=== PATIENT | male | born 1990 | race Two or more races ===

== ENCOUNTER 2023-09-13 10:06 | Inpatient (IN) | payer MEDICAID ==
[~2023-09-13] VITALS: Ht 180.3 cm; Wt 78.0 kg
[2023-09-13] MEDS ORDERED: DiphenhydrAMINE HCL 50 MG/ML VIAL ONE (10:49)
[2023-09-13] MEDS ORDERED: HALOPERIDOL LACTATE 5 MG/ML VIAL ONE (10:49)
[2023-09-13] MEDS ORDERED: LORazepam 2 MG/ML VIAL ONE (10:49)
[2023-09-13] MEDS ORDERED: LORazepam 2 MG/ML VIAL IM ONE (11:00)
[2023-09-13] MEDS ORDERED: PERTUSS(ACELL),DIPH,TET VAC/PF 0.5 ML SYRINGE IM. ONE (11:00)
[2023-09-13] MEDS ORDERED: HALOPERIDOL LACTATE 5 MG/ML VIAL IM ONE (11:00)
[2023-09-13] MEDS ORDERED: DiphenhydrAMINE HCL 50 MG/ML VIAL IM ONE (11:00)
[2023-09-13 12:58] LABS: BASOPHILS % (AUTO) 0.3 % (0.0-2.0); EOSINOPHILS % (AUTO) 0.5 % (1.0-6.0); HEMATOCRIT 34.4 % (41-53); HEMOGLOBIN 11.8 g/dL (13.5-17.5); LYMPHOCYTES # (AUTO) 1.2 K/uL (1.0-4.8); LYMPHOCYTES % (AUTO) 14.9 % (22.0-44.0); MEAN CORPUSCULAR HGB CONC 34.2 G/dL (31.0-37.0); MEAN CORPUSCULAR VOLUME 94 fL (80-100); MONOCYTES # (AUTO) 0.6 K/uL (0.1-1.0); MONOCYTES % (AUTO) 7.7 % (2.0-9.0); NEUTROPHILS # (AUTO) 5.9 K/uL (1.8-7.7); NEUTROPHILS % (AUTO) 76.6 % (40.0-70.0); PLATELET COUNT (AUTO) 199 K/uL (150-450); RED BLOOD CELL COUNT(AUTO) 3.68 MIL/uL (4.50-5.90); RED CELL DISTRIBUTION WIDTH 13.7 % (11.5-14.5); WHITE BLOOD COUNT (AUTO) 7.7 K/uL (4.5-11.0)
[2023-09-13 13:11] LABS: ALCOHOL, BLOOD (SERUM) < 3 mg/dL (0-10)
[2023-09-13 13:12] LABS: ANION GAP 2 mmol/L (8-16); CALCIUM, TOTAL 8.8 mg/dL (8.8-10.5); CARBON DIOXIDE 28 mmol/L (22-29); CHLORIDE 108 mmol/L (98-107); CREATININE 1.02 mg/dL (0.60-1.30); GLOMERULAR FILTR. RATE CALC > 60 mL/min (>60); GLUCOSE,RANDOM 80 mg/dL (70-110); POTASSIUM 3.9 mmol/L (3.5-5.1); SODIUM SERUM 138 mmol/L (136-145); UREA NITROGEN, BLOOD 14 mg/dL (7-18)
[2023-09-13 13:18] LABS: ALANINE AMINOTRANSFERASE 25 U/L (12-78); ALBUMIN 3.2 g/dL (3.4-5.0); ALKALINE PHOSPHATASE 85 U/L (46-116); ASPARTATE AMINOTRANSFERASE 30 U/L (15-37); BILIRUBIN,TOTAL 0.3 mg/dL (0.1-1.0); TOTAL PROTEIN, SERUM 6.5 g/dL (6.4-8.2)
[2023-09-13 13:29] LABS: COVID AG,FIA SOURCE NASAL SWAB
[2023-09-13 13:45] LABS: SARS-COV2 (COVID) ANTIGEN,FIA Negative (Negative)
[2023-09-13] MEDS ORDERED: ZOLPIDEM TARTRATE 10 MG TABLET PO PRN (17:00)
[2023-09-13 18:42] VITALS: RESP 18; TEMP 97.9
[2023-09-13] MEDS ORDERED: INFLUENZA VIRUS VACCINE QVS 2023-24 (6MO+)/PF 60 MCG/0.5 ML SYRINGE IM. ONE (18:45)
[2023-09-13 23:49] VITALS: RESP 18; TEMP 98
[2023-09-14] MEDS ORDERED: IBUPROFEN 400 MG TABLET PO PRN (14:00)
[2023-09-14] MEDS ORDERED: ONDANSETRON HCL 4 MG TABLET PO PRN (14:00)
[2023-09-14] MEDS ORDERED: MAGNESIUM HYDROXIDE SUSPENSION 30 ML UDCUP PO PRN (14:00)
[2023-09-14] MEDS ORDERED: NICOTINE 14 MG/24 HOUR PATCH TD PRN (14:00)
[2023-09-14] MEDS ORDERED: DOCUSATE SODIUM 100 MG CAPSULE PO PRN (14:00)
[2023-09-14] MEDS ORDERED: LOPERAMIDE HCL 2 MG CAPSULE PO PRN (14:00)
[2023-09-14] MEDS ORDERED: GuaiFENesin/D-METHORPHAN [SUGAR-FREE] 200-20MG/10 ML SYRUP UDCUP PO PRN (14:00)
[2023-09-14] MEDS ORDERED: CloNIDine HCL 0.1 MG TABLET PO PRN (14:00)
[2023-09-14] MEDS ORDERED: PETROLATUM,WHITE 28 GM JELLY TP PRN (14:00)
[2023-09-14] MEDS ORDERED: ALBUTEROL SULFATE HFA 90 MCG/PUFF 8 GM INHALER IH PRN (14:00)
[2023-09-14] MEDS ORDERED: ACETAMINOPHEN 325 MG TABLET PO PRN (14:00)
[2023-09-14] MEDS ORDERED: MAG HYDROX/ALUMINUM HYD/SIMETH ES 30 ML SUSPENSION UDCUP PO PRN (14:00)
[2023-09-14] MEDS: OLANZapine 5 MG RAPDIS TABLET PO SCH (17:00)
[2023-09-14 18:20] VITALS: RESP 17
[2023-09-14 21:30] VITALS: RESP 18
[2023-09-15 08:05] VITALS: RESP 17
[2023-09-15] MEDS: OLANZapine 5 MG RAPDIS TABLET PO SCH ×2 (08:09→16:14)
[2023-09-15 08:45] LABS: HEMOGLOBIN A1C 5.4 % (3.8-5.6)
[2023-09-15 09:05] LABS: CHOL/HDL RATIO 2.3 (4.2-7.3); CHOLESTEROL 165 mg/dL (131-200); HDL CHOLESTEROL 73 mg/dL (40-60); LDL CHOL (CALC.) 85 mg/dL (0-130); THYROID STIMULATING HORMONE 0.91 uIU/mL (0.36-3.74); TRIGLYCERIDES 37 mg/dL (15-150)
[2023-09-15 23:52] VITALS: BP 133/70; PULSE 69; RESP 18; TEMP 97.8
[2023-09-16] MEDS: OLANZapine 5 MG RAPDIS TABLET PO SCH ×2 (08:38→17:27)
[2023-09-16 09:11] VITALS: BP 127/71; PULSE 71; RESP 18; TEMP 97.6; O2SAT 99
[2023-09-17 05:17] VITALS: RESP 18
[2023-09-17 08:00] VITALS: BP 116/72; PULSE 81; RESP 17; TEMP 98.2; O2SAT 100
[2023-09-17] MEDS: OLANZapine 5 MG RAPDIS TABLET PO SCH ×2 (08:16→17:05)
[2023-09-17] MEDS: LORazepam 2 MG TABLET PO PRN ×2 (08:47→17:05)
[2023-09-17 20:19] VITALS: BP 109/68; PULSE 96; RESP 18; TEMP 98.2; O2SAT 96
[2023-09-18] MEDS: OLANZapine 5 MG RAPDIS TABLET PO SCH ×2 (08:06→16:16)
[2023-09-18] MEDS: LORazepam 2 MG TABLET PO PRN (08:06)
[2023-09-18] MEDS ORDERED: LORazepam 2 MG/ML VIAL ONE (18:38)
[2023-09-18] MEDS ORDERED: HALOPERIDOL LACTATE 5 MG/ML VIAL ONE (18:38)
[2023-09-18] MEDS ORDERED: DiphenhydrAMINE HCL 50 MG/ML VIAL ONE (18:38)
[2023-09-18] MEDS ORDERED: DiphenhydrAMINE HCL 50 MG/ML VIAL IM ONE (19:15)
[2023-09-18] MEDS ORDERED: LORazepam 2 MG/ML VIAL IM ONE (19:15)
[2023-09-18] MEDS ORDERED: HALOPERIDOL LACTATE 5 MG/ML VIAL IM ONE (19:15)
[2023-09-18 22:56] VITALS: BP 122/56; PULSE 102; RESP 16; TEMP 98.8; O2SAT 98
[2023-09-19] MEDS: LORazepam 2 MG TABLET PO PRN ×2 (08:14→16:14)
[2023-09-19] MEDS: HALOPERIDOL 5 MG TABLET PO PRN ×2 (08:14→16:14)
[2023-09-19] MEDS: OLANZapine 5 MG RAPDIS TABLET PO SCH ×2 (08:14→16:14)
[2023-09-19 08:36] VITALS: BP 112/63; PULSE 96; RESP 17; TEMP 98.7; O2SAT 97
[2023-09-20 03:08] VITALS: RESP 18
[2023-09-20 08:28] VITALS: BP 124/69; PULSE 89; RESP 20; TEMP 98.6; O2SAT 97
[2023-09-20] MEDS: OLANZapine 5 MG RAPDIS TABLET PO SCH ×2 (09:18→17:28)
[2023-09-20] MEDS: LORazepam 2 MG TABLET PO PRN (17:28)
[2023-09-20 21:35] VITALS: BP 137/62; PULSE 89; RESP 18; TEMP 97.7
[2023-09-21] MEDS: OLANZapine 5 MG RAPDIS TABLET PO SCH ×2 (08:07→17:23)
[2023-09-21 08:33] LABS: HEMOGLOBIN A1C 5.3 % (3.8-5.6)
[2023-09-21 08:36] LABS: THYROID STIMULATING HORMONE 1.01 uIU/mL (0.36-3.74)
[2023-09-21 12:56] VITALS: BP 130/79; PULSE 102; RESP 21; TEMP 97.9; O2SAT 99
[2023-09-21] MEDS: LORazepam 2 MG TABLET PO PRN (17:23)
[2023-09-22 01:16] VITALS: BP 135/82; PULSE 92; RESP 18; TEMP 97.5; O2SAT 96
[2023-09-22 09:00] VITALS: BP 126/78; PULSE 88; RESP 18; TEMP 97.6; O2SAT 100
[2023-09-22] MEDS: LORazepam 2 MG TABLET PO PRN ×2 (09:19→14:05)
[2023-09-22] MEDS: OLANZapine 5 MG RAPDIS TABLET PO SCH ×2 (09:19→17:15)
[2023-09-22 21:00] VITALS: RESP 18
[2023-09-23] MEDS: OLANZapine 5 MG RAPDIS TABLET PO SCH ×2 (09:33→16:47)
[2023-09-23 10:21] VITALS: BP 126/77; PULSE 108; RESP 20; TEMP 98.2; O2SAT 100
[2023-09-23 21:41] VITALS: BP 138/88; PULSE 99; RESP 18; TEMP 97.9; O2SAT 98
[2023-09-24] MEDS: OLANZapine 5 MG RAPDIS TABLET PO SCH (08:31)
[2023-09-24] MEDS ORDERED: OLAN5TAB94 PO (09:11)
[2023-09-24 09:56] VITALS: BP 125/67; PULSE 98; RESP 18; TEMP 98.1; O2SAT 99
== END 2023-09-24 16:00 | disposition home or self-care (01) | DRG 750 ==
LOC: EMS 10:18 → EDBD 10:18 → B3A 14:39
PROVIDERS: ADMIT Psychiatry & Neurology Psychiatry; ATTEND Psychiatry & Neurology Psychiatry
PROC: GZHZZZZ Group Psychotherapy (ICD-10-PCS; principal; 2023-09-17)
DX: F20.0 Paranoid schizophrenia (principal); D64.9 Anemia, unspecified; G47.00 Insomnia, unspecified; F41.9 Anxiety disorder, unspecified; Z20.822 Contact with and (suspected) exposure to COVID-19
CPT/HCPCS: 70450; 70486; 72125; 80053; 80061; 83036; 84443; 85025; 90715; 99285; G0480; J1200; J1630; J2060